=== PATIENT | male | born 1970 | race Caucasian/White ===

== ENCOUNTER 2019-11-11 09:57 | Emergency (ER) | payer MEDICAID ==
[~2019-11-11] VITALS: Ht 175.3 cm; Wt 89.1 kg
[2019-11-11 10:07] VITALS: BP 115/75
[2019-11-11] MEDS ORDERED: SULF1TAB49 PO (12:06)
== END 2019-11-11 12:37 | disposition home or self-care (01) ==
LOC: ER 09:58
DX: S61.234A Puncture wound without foreign body of right ring finger without damage to nail, initial encounter (principal); S61.235A Puncture wound without foreign body of left ring finger without damage to nail, initial encounter; S61.237A Puncture wound without foreign body of left little finger without damage to nail, initial encounter; F17.200 Nicotine dependence, unspecified, uncomplicated; Z79.899 Other long term (current) drug therapy; W54.0XXA Bitten by dog, initial encounter; Y93.89 Activity, other specified; Y92.89 Other specified places as the place of occurrence of the external cause; Y99.8 Other external cause status
CPT/HCPCS: 73120; 99283

== ENCOUNTER 2021-01-06 17:43 | Emergency (ER) | payer MEDICAID ==
[~2021-01-06] VITALS: Ht 175.3 cm; Wt 90.9 kg
[2021-01-06] MEDS ORDERED: acetaminophen 325mg tablet PO ONE (21:15)
[2021-01-06] MEDS ORDERED: meclizine 12.5mg tablet PO ONE (21:15)
[2021-01-06] MEDS ORDERED: metoclopramide 5 mg/ml inj IM ONE (21:15)
[2021-01-06] MEDS ORDERED: MECL-159 PO (21:20)
[2021-01-06 21:41] VITALS: BP 156/104
== END 2021-01-06 21:48 | disposition home or self-care (01) ==
LOC: ER 17:43
DX: R42 Dizziness and giddiness (principal); G44.209 Tension-type headache, unspecified, not intractable; I10 Essential (primary) hypertension; K21.9 Gastro-esophageal reflux disease without esophagitis; F17.210 Nicotine dependence, cigarettes, uncomplicated
CPT/HCPCS: 93005; 96372; 99285; J2765; J8597

== ENCOUNTER 2021-01-21 09:37 | Emergency (ER) | payer MEDICAID ==
[~2021-01-21] VITALS: Ht 175.3 cm; Wt 93.2 kg
[~2021-01-21 09:37] MED LIST: MECL-159 PO
[2021-01-21] MEDS ORDERED: metoclopramide 5 mg/ml inj IV ONE (09:45)
[2021-01-21] MEDS ORDERED: meclizine 12.5mg tablet PO ONE (09:45)
[2021-01-21 10:02] LABS: BASOPHILS # (AUTO) 0.1 X10'3 (0-0.2); BASOPHILS % (AUTO) 0.6 % (0-1); EOSINOPHILS % (AUTO) 0.1 % (0-6); HEMATOCRIT 45.6 % (42.0-52.0); HEMOGLOBIN 15.1 g/dl (14.0-17.9); LYMPHOCYTES # (AUTO) 1.6 X10'3 (1.1-4.8); LYMPHOCYTES % (AUTO) 10.5 % (21-51); MEAN CORPUSCULAR HEMOGLOBIN 30.4 PG (27.0-31.0); MEAN CORPUSCULAR HGB CONC 33.1 g/dL (33.0-36.5); MEAN CORPUSCULAR VOLUME 91.9 FL (78-98); MEAN PLATELET VOLUME 7.6 FL (7.4-10.4); MONOCYTES # (AUTO) 0.8 X10'3 (0-0.9); MONOCYTES % (AUTO) 5.2 % (2-12); NEUTROPHILS # (AUTO) 12.6 X10'3 (1.8-7.7); NEUTROPHILS % (AUTO) 83.6 % (42-75); PLATELET COUNT 271 X10'3 (140-440); RED BLOOD COUNT 4.96 X10'6 (4.70-6.10); RED CELL DISTRIBUTION WIDTH 14.6 % (11.5-14.5); WHITE BLOOD COUNT 15.1 X10'3 (4.5-11.0)
[2021-01-21 10:19] LABS: ALANINE AMINOTRANSFERASE 52 U/L (12-78); ALBUMIN 3.9 G/DL (3.4-5.0); ALBUMIN/GLOBULIN RATIO 1.1 (1.1-1.5); ALKALINE PHOSPHATASE 80 IU/L (46-116); ANION GAP 15 (8-16); ASPARTATE AMINO TRANSFERASE 23 U/L (10-37); BILIRUBIN,TOTAL 0.3 MG/DL (0.1-1.0); BLOOD UREA NITROGEN 14 MG/DL (7-18); BUN/CREATININE RATIO 11.1 (5.4-32.0); CHLORIDE 103 MMOL/L (99-107); CREATININE 1.26 MG/DL (0.60-1.10); GLUCOSE 156 MG/DL (70-104); POTASSIUM 3.8 MMOL/L (3.5-5.1); SODIUM 140 MMOL/L (135-145); TOTAL CARBON DIOXIDE 22.3 MMOL/L (24-32); TOTAL PROTEIN 7.5 G/DL (6.4-8.2); eGFR 60 ML/MIN
--- NOTE | 2021-01-21 11:25 | NUR ---
PATIENT INFORMED THAT HE WAS GOING TO BE DISCHARGED AND THAT TESTS WERE NEGATIVE. PATIENT STATES THAT HE IS UNABLE TO BE DISCHARGED BECAUSE HE STILL FEELS NUMBNESS ON THE LEFT SIDE AND CANNOT WALK. DR. PINEDO NOTIFIED OF PATIENT COMPLAINT AND ORDERED A GAIT TEST. NETWORK SUPPORT ENGINEER WILL PERFORM GAIT TEST WITH PATIENT.
[2021-01-21] MEDS ORDERED: normal saline 1000ML IV soln IVB ONE (12:40)
[2021-01-21] MEDS ORDERED: diazepam inj 5 MG/ML inj. IV ONE (12:40)
[2021-01-21] MEDS ORDERED: ondansetron/PF 4mg/2ml inj IV ONE (12:55)
[2021-01-21 13:15] VITALS: BP 141/104
--- NOTE | 2021-01-21 13:48 | NUR ---
SPOKE WITH ELYSE BOND WHOM CALLED AND CHECKED ON PT. RECEIVED VERBAL APPROVAL FROM PT THAT I MAY UPDATE ELYSE. ELYSE UPDATED AND IS GOING TO SEE ABOUT GETTING A RIDE SET UP FOR PT AND STATES HE WILL RETURN CALL PROMPTLY. CONTACT NUMBER FOR EYLSE:
--- NOTE | 2021-01-21 13:53 | NUR ---
RECEIVED CALL FROM ELYSE AND THAT PT WILL BE PICKED UP FROM A FRIEND WHOM LIVES IN [place] AND WILL TRY TO BE HERE IN APPROX [id number]
== END 2021-01-21 14:46 | disposition home or self-care (01) ==
LOC: ER 09:37
DX: G43.909 Migraine, unspecified, not intractable, without status migrainosus (principal); R42 Dizziness and giddiness; R20.2 Paresthesia of skin; R11.2 Nausea with vomiting, unspecified; K21.9 Gastro-esophageal reflux disease without esophagitis; Z86.73 Personal history of transient ischemic attack (TIA), and cerebral infarction without residual deficits; Z79.899 Other long term (current) drug therapy
CPT/HCPCS: 36415; 70450; 80053; 85025; 96361; 96374; 96375; 99285; J2405; J2765; J3360; J7030; J8597